=== PATIENT | female | born 1950 | race Caucasian/White ===

== ENCOUNTER → 2016-02-13 | Outpatient (CLI) | payer MEDICARE, OTHER ==
[~2016-02-13] MED LIST: ATIVAN; ATIVAN0.5 MG PO; DIFLUCAN150 MG PO; DUONEB 3 MG/3 ML3 M1 INH; ESTROGEN; GEODON; IMDUR SA30 MG PO; LEVOTHYROXINE0.05 M1 PO; LOPID; LOVASTATIN; LOVASTATIN20 MG PO; MIRTAZAPINE30 M2 PO; OXYBUTYNIN CHLO10 MG PO; OXYCODONE HCL5 MG PO; PRILOSEC; PRILOSEC20 M1 PO; REMERON; TESSALON PERLE200 MG PO; TRICOR145 MG PO; VITAMIN D50000 I3 PO; ZOFRAN ODT4 MG SL; Zofran4 MG PO
== END | disposition home or self-care (01) ==
LOC: RAD 02-12 10:04
DX: M54.6 Pain in thoracic spine (principal)

== ENCOUNTER 2017-01-08 21:28 | Inpatient (IN) | payer MEDICARE, OTHER ==
[2017-01-08] VITALS (9 sets, daily range): BP systolic 76–117; BP diastolic 39–78
[~2017-01-08] VITALS: Ht 170.2 cm; Wt 78.1 kg
[2017-01-08 21:50] LABS: BASO # 0.1 10*3/uL (0.0-0.1); BASO % 0.9 % (0.0-1.0); EOS # 0.2 10*3/uL (0.0-0.4); EOS % 3.3 % (1.0-4.0); HEMATOCRIT 26.4 % (37.0-47.0); HEMOGLOBIN 8.3 g/dl (12.0-16.0); LYMPH # 2.1 10*3/uL (1.3-4.4); LYMPH % 38.1 % (27.0-41.0); MEAN CELL VOLUME 92.3 fl (81.0-99.0); MEAN CORPUSCULAR HGB CONC 31.4 g/dl (33.0-37.0); MEAN PLATELET VOLUME 10.2 fl (9.6-12.3); MONO # 0.4 10*3/uL (0.1-1.0); MONO % 6.9 % (3.0-9.0); NEUT # 2.8 10*3/uL (2.3-7.9); NEUT % 50.4 % (47.0-73.0); PLATELET COUNT AUTOMATED 222 10*3/uL (130-400); RED BLOOD COUNT 2.86 10*6/uL (4.10-5.10); RED CELL DISTRI WIDTH 15.2 % (0-14.5); WHITE BLOOD COUNT 5.5 10*3/uL (4.8-10.8)
--- NOTE | 2017-01-08 22:00 | NUR ---
AT BEDSIDE. PATIENT UNABLE TO URINATE AT THIS TIME. WILL CONTINUE TO MONITOR. CALL LIGHT WITHIN REACH.
[2017-01-08 22:06] LABS: ALBUMIN 2.4 gm/dl (3.1-4.5); ALKALINE PHOSPHATASE 88 U/L (45-117); BUN 12 mg/dl (7-24); CHLORIDE 111 mmol/L (98-107); POTASSIUM 4.1 mmol/L (3.5-5.1); SGOT/AST 25 IU/L (3-35); SGPT/ALT 30 U/L (12-78); SODIUM 143 mmol/L (136-145); TOTAL PROTEIN 5.5 gm/dL (6.4-8.2)
[2017-01-08 22:07] LABS: TROPONIN I < 0.015 ng/ml (<0.045)
--- NOTE | 2017-01-08 23:00 | NUR ---
PATIENT ATTEMPTED TO URINATE ON BEDPAN AFTER ENCOURAGMENT. PATIENT REPORTS SHE IS UNABLE TO GO. PATIENT REFUSES STRAIGHT CATHERIZATION.
--- NOTE | 2017-01-08 23:35 | NUR ---
A 66, admitted to 5E, under the services of JAS Massey DO with a diagnosis of HYPOTENSION, PNEUMONIA, LACTIC ACIDOSIS. Chief complaint is WEAKNESS AND FLUSHING. Patient arrived via bed from ER. Monitor applied. Initial assessment completed. Vital signs taken and recorded. JAS MASSEY DO notified of admission to the unit. Orders received. See assessment for past medical history, medications and allergies. Patient and/or family oriented to unit. visitation policy reviewed. Clothing/patient valuable form completed. OWEN HILL
--- NOTE | 2017-01-09 00:14 | NUR ---
UNABLE TO VERIFY HOME MEDICATIONS WITH PATIENT. PATIENT SLEEPY AND LETHARGIC AT THIS TIME AND DOESN'T KNOW WHAT MEDICATIONS SHE TAKES. WILL PASS ON TO DAYLIGHT SHIFT TO CALL [facility] TO VERIFY MEDS. DR. CALDERON NOTIFIED OF PATIENT ADMISSION TO THE FLOOR.
[2017-01-09 04:29] LABS: BILIRUBIN NEGATIVE (NEGATIVE); BLOOD NEGATIVE (NEGATIVE); CLARITY CLEAR (CLEAR); COLOR YELLOW (YELLOW); GLUCOSE NEGATIVE (NEGATIVE); KETONE NEGATIVE (NEGATIVE); LEUKO ESTERASE TRACE (NEGATIVE); NITRITE NEGATIVE (NEGATIVE); PH 6.5 (5.0-9.0); SPECIFIC GRAVITY <= 1.005 (1.005-1.030); UROBILINOGEN 0.2 E.U./dl (0.2-1.0)
[2017-01-09 04:36] LABS: EPITHELIAL CELLS 0-5
[2017-01-09 04:38] LABS: URINE AMPHETAMINES < 1000 (1000ng/ml); URINE BARBITURATES < 200 (200ng/ml); URINE BENZODIAZEPINES < 200 (200ng/ml); URINE CANNABINOIDS (THC) < 50 (50ng/ml); URINE COCAINE < 300 (300ng/ml); URINE METHADONE < 300 (300ng/ml); URINE OPIATES > 300 (300ng/ml)
[2017-01-09 04:39] LABS: URINE PHENCYCLIDINE < 25 (25ng/ml)
--- NOTE | 2017-01-09 05:01 | NUR ---
PATIENT REFUSED TO HAVE LABS DRAWN THIS AM.
--- NOTE | 2017-01-09 05:59 | NUR ---
DR. DOOLEY NOTIFIED OF PATIENT REFUSAL TO LET LABS BE DRAWN THIS AM.
--- NOTE | 2017-01-09 07:05 | NUR ---
During bedside report pt states she is leaving this morning.
--- NOTE | 2017-01-09 07:35 | NUR ---
States that she feels fine and doesnt want to be here anymore so she is leaving. MBP this am was 110/70. Denies dizziness or shortness of breath. Pt states that she is aware she has pneumonia. I asked pt if she is planning on following up with her physican regarding this and she states she will. Pt requests IV's be taken out and ekg monitor off.
--- NOTE | 2017-01-09 07:43 | NUR ---
Notified Dr. Linares that pt is leaving AMA. Pt had already called this morning and he is here now, pt is getting dressed. Notified him that pt states she will follow up with her physican for antibiotics, states she is aware she has pneumonia.
--- NOTE | 2017-01-09 07:44 | NUR ---
Pt left via ambulatory in care of her with belongings.
--- NOTE | 2017-01-09 08:46 | NUR ---
PHYSICAL THERAPY Nursing screen received. Not appropriate for PT as patient left AMA. Thank you. Jazmin Kiran,PT
--- NOTE | 2017-01-09 14:49 | NUR ---
Occupational Therapy screen received however patient left AMA. [facility] OTR/l
== END 2017-01-09 07:44 | disposition left against medical advice (07) | DRG 682 ==
LOC: ED 21:28 → 5E 23:11
PROVIDERS: Student in an Organized Health Care Education/Training Program; ADMIT Emergency Medicine
DX: N17.0 Acute kidney failure with tubular necrosis (principal); E43 Unspecified severe protein-calorie malnutrition; G93.41 Metabolic encephalopathy; I95.9 Hypotension, unspecified; E87.2 Acidosis; E87.8 Other disorders of electrolyte and fluid balance, not elsewhere classified; Z99.81 Dependence on supplemental oxygen; E86.0 Dehydration; Z68.27 Body mass index [BMI] 27.0-27.9, adult; R55 Syncope and collapse; J43.9 Emphysema, unspecified; E03.9 Hypothyroidism, unspecified; E78.5 Hyperlipidemia, unspecified; F31.9 Bipolar disorder, unspecified; D64.9 Anemia, unspecified; G43.909 Migraine, unspecified, not intractable, without status migrainosus; N32.81 Overactive bladder; K21.9 Gastro-esophageal reflux disease without esophagitis; I10 Essential (primary) hypertension; G47.00 Insomnia, unspecified; E55.9 Vitamin D deficiency, unspecified; F17.210 Nicotine dependence, cigarettes, uncomplicated; J32.0 Chronic maxillary sinusitis; R73.9 Hyperglycemia, unspecified; F41.9 Anxiety disorder, unspecified; I70.90 Unspecified atherosclerosis; R25.2 Cramp and spasm; E66.3 Overweight; Z86.711 Personal history of pulmonary embolism; Z79.01 Long term (current) use of anticoagulants; Z86.73 Personal history of transient ischemic attack (TIA), and cerebral infarction without residual deficits; Z90.49 Acquired absence of other specified parts of digestive tract; Z90.710 Acquired absence of both cervix and uterus; Z88.5 Allergy status to narcotic agent; Z71.6 Tobacco abuse counseling; Z88.0 Allergy status to penicillin; Z88.2 Allergy status to sulfonamides; Z79.899 Other long term (current) drug therapy

== ENCOUNTER → 2017-11-05 | Outpatient (CLI) | payer MEDICARE, OTHER | END | disposition home or self-care (01) | LOC: CT 12:58 | DX: R05 Cough (principal); R06.02 Shortness of breath; R09.89 Other specified symptoms and signs involving the circulatory and respiratory systems; Z86.718 Personal history of other venous thrombosis and embolism ==

== ENCOUNTER 2019-05-11 21:52 | Emergency (ER) | payer MEDICARE, OTHER ==
[~2019-05-11] VITALS: Ht 170.1 cm; Wt 66.7 kg
[~2019-05-11 21:52] MED LIST changes: +AMBIEN10 M1 PO; +COREG12.5 M1 PO; +COZAAR25 M1 PO; +LEVOTHYROXINE50 MCG PO; +LOVASTATIN40 MG PO; +OMEPRAZOLE40 MG PO; +PERCOCET 10-321 EACH PO; +REMERON30 M1 PO; +ZANAFLEX4 M1 PO; +ZESTRIL10 MG PO; +ZIPRASIDONE HCL80 M1 PO
[2019-05-11 21:56] VITALS: BP 118/77
== END 2019-05-11 23:24 | disposition left against medical advice (07) ==
LOC: ED 21:52
DX: R07.89 Other chest pain (principal); F17.200 Nicotine dependence, unspecified, uncomplicated; Z88.0 Allergy status to penicillin; Z88.2 Allergy status to sulfonamides; Z88.6 Allergy status to analgesic agent; Z91.018 Allergy to other foods; Z79.899 Other long term (current) drug therapy

== ENCOUNTER 2019-08-10 14:50 | Emergency (ER) | payer MEDICARE, OTHER ==
[~2019-08-10] VITALS: Ht 170.1 cm; Wt 66.2 kg
[2019-08-10 14:56] VITALS: BP 108/58
[2019-08-10 15:52] LABS: BASO # 0.1 10*3/uL (0.0-0.1); BASO % 0.9 % (0.0-1.0); EOS # 0.3 10*3/uL (0.0-0.4); EOS % 5.9 % (1.0-4.0); LYMPH # 1.7 10*3/uL (1.3-4.4); LYMPH % 30.6 % (27.0-41.0); MEAN CELL VOLUME 90.7 fl (81.0-99.0); MEAN CORPUSCULAR HGB CONC 30.9 g/dl (33.0-37.0); MONO # 0.3 10*3/uL (0.1-1.0); MONO % 6.3 % (3.0-9.0); NEUT % 56.1 % (47.0-73.0); PLATELET COUNT AUTOMATED 281 10*3/uL (130-400); RED CELL DISTRI WIDTH 14.7 % (0-14.5); WHITE BLOOD COUNT 5.4 10*3/uL (4.8-10.8)
[2019-08-10 15:52] LABS: ABG BASE EXCESS -0.2 mmol/L (-2.0-2.0); ARTERIAL BLOOD GAS PH 7.357 (7.35-7.45)
[2019-08-10 16:09] LABS: ALBUMIN 2.9 gm/dl (3.1-4.5); CREATININE 1.31 mg/dL (0.55-1.02); POTASSIUM 4.1 mmol/L (3.5-5.1); TOTAL PROTEIN 7.3 gm/dL (6.4-8.2)
[2019-08-10 17:29] LABS: BILIRUBIN NEGATIVE (NEGATIVE); BLOOD NEGATIVE (NEGATIVE); CLARITY SL CLOUDY (CLEAR); COLOR YELLOW (YELLOW); GLUCOSE NEGATIVE (NEGATIVE); KETONE NEGATIVE (NEGATIVE); LEUKO ESTERASE 1+ (NEGATIVE); NITRITE NEGATIVE (NEGATIVE); SPECIFIC GRAVITY 1.005 (1.005-1.030); UROBILINOGEN 0.2 E.U./dl (0.2-1.0)
[2019-08-10 17:32] LABS: BACTERIA 1+; WBC 21-30 wbc/hpf (0-5)
[2019-08-10] MEDS ORDERED: PROVENTIL HFA6.7 GM INH (17:32)
[2019-08-10] MEDS ORDERED: PREDNISONE20 M1 PO (17:32)
== END 2019-08-10 17:38 | disposition home or self-care (01) ==
LOC: ED 14:50
PROVIDERS: Emergency Medicine
DX: J44.1 Chronic obstructive pulmonary disease with (acute) exacerbation (principal); F31.9 Bipolar disorder, unspecified; F41.9 Anxiety disorder, unspecified; I10 Essential (primary) hypertension; F17.200 Nicotine dependence, unspecified, uncomplicated; Z88.8 Allergy status to other drugs, medicaments and biological substances; Z88.2 Allergy status to sulfonamides; Z88.5 Allergy status to narcotic agent; Z88.0 Allergy status to penicillin

== ENCOUNTER → 2019-09-23 | Outpatient (CLI) | payer MEDICARE, OTHER ==
[~2019-09-23] MED LIST changes: +PREDNISONE20 M1 PO; +PROVENTIL HFA6.7 GM INH
== END | disposition home or self-care (01) ==
LOC: US 09-21 08:30
DX: R10.84 Generalized abdominal pain (principal); R10.2 Pelvic and perineal pain

== ENCOUNTER → 2019-12-07 | Outpatient (CLI) | payer MEDICARE, OTHER ==
--- NOTE | 2019-12-07 10:12 | NUR ---
PATIENT CAME IN TO THE HOSPITAL TO BE EVALUATED FOR HOME OXYGEN. ON ROOM AIR AT REST THE PATIENT'S VITALS WERE: HEART RATE 114, RESPIRATORY RATE:22, SPO2:92%, BLOOD PRESSURE:137/85. DURING AMBULATION THE PATIENT SHOW SIGNS AND COMPLAINED OF FATIGUE AND SHORTNESS OF BREATH. HER SPO2 read at 87% on room air. with 2l nasal cannula during ambulation the patient was able to maintain 92%, and hold with the 2l nasal cannula.
== END | disposition home or self-care (01) ==
LOC: CP 09:17
PROVIDERS: ATTEND Family Medicine
DX: R09.02 Hypoxemia (principal)

== ENCOUNTER → 2020-09-18 | Outpatient (CLI) | payer MEDICARE, OTHER ==
[2020-09-18 10:00] LABS: BASO # 0.1 10*3/uL (0.0-0.1); EOS # 0.3 10*3/uL (0.0-0.4); EOS % 4.6 % (1.0-4.0); HEMATOCRIT 32.9 % (37.0-47.0); LYMPH # 1.6 10*3/uL (1.3-4.4); LYMPH % 27.3 % (27.0-41.0); MEAN CELL VOLUME 90.6 fl (81.0-99.0); MEAN CORPUSCULAR HGB 28.1 pg (27.0-31.0); MEAN PLATELET VOLUME 9.8 fl (9.6-12.3); MONO # 0.3 10*3/uL (0.1-1.0); MONO % 5.8 % (3.0-9.0); NEUT # 3.6 10*3/uL (2.3-7.9); PLATELET COUNT AUTOMATED 301 10*3/uL (130-400); RED BLOOD COUNT 3.63 10*6/uL (4.10-5.10); RED CELL DISTRI WIDTH 14.8 % (0-14.5); RETICULOCYTE % 1.23 % (0.50-2.50); WHITE BLOOD COUNT 5.9 10*3/uL (4.8-10.8)
[2020-09-18 10:31] LABS: ALBUMIN 3.2 gm/dl (3.1-4.5); CREATININE 1.34 mg/dL (0.55-1.02); POTASSIUM 4.3 mmol/L (3.5-5.1)
[2020-09-18 10:41] LABS: THYROID STIM HORMONE (HS) 1.53 uIU/ml (0.358-4.75); THYROXINE (T4) TOTAL 10.6 ug/dl (4.8-13.9); TOTAL PROTEIN 7.7 gm/dL (6.4-8.2)
[2020-09-18 11:54] LABS: FERRITIN 9.6 ng/mL (10.0-291.0); VITAMIN D, 25-HYDROXY 15.2 ng/mL (30-100)
== END | disposition home or self-care (01) ==
LOC: LAB 09:27
PROVIDERS: ATTEND Family Medicine
DX: E78.5 Hyperlipidemia, unspecified (principal); R79.89 Other specified abnormal findings of blood chemistry; R53.83 Other fatigue; E55.9 Vitamin D deficiency, unspecified

== ENCOUNTER 2020-09-20 11:17 | Emergency (ER) | payer MEDICARE, OTHER ==
[~2020-09-20] VITALS: Ht 170.1 cm; Wt 61.2 kg
[2020-09-20 11:21] VITALS: BP 172/74
== END 2020-09-20 13:07 | disposition left against medical advice (07) ==
LOC: ED 11:17
DX: R20.0 Anesthesia of skin (principal); Z53.21 Procedure and treatment not carried out due to patient leaving prior to being seen by health care provider

== ENCOUNTER → 2023-03-27 | Outpatient (CLI) | payer OTHER ==
[2023-03-27 13:50] LABS: BASO # 0.1 10*3/uL (0.0-0.1); BASO % 1.6 % (0.0-1.0); EOS # 0.4 10*3/uL (0.0-0.4); EOS % 8.4 % (1.0-4.0); HEMATOCRIT 34.3 % (37.0-47.0); LYMPH # 1.8 10*3/uL (1.3-4.4); LYMPH % 35.8 % (27.0-41.0); MEAN CELL VOLUME 81.9 fl (81.0-99.0); MEAN CORPUSCULAR HGB 23.4 pg (27.0-31.0); MEAN CORPUSCULAR HGB CONC 28.6 g/dl (33.0-37.0); MEAN PLATELET VOLUME 9.5 fl (9.6-12.3); MONO # 0.4 10*3/uL (0.1-1.0); NEUT # 2.4 10*3/uL (2.3-7.9); PLATELET COUNT AUTOMATED 339 10*3/uL (130-400); RED BLOOD COUNT 4.19 10*6/uL (4.10-5.10); RED CELL DISTRI WIDTH 15.7 % (0-14.5); WHITE BLOOD COUNT 5.1 10*3/uL (4.8-10.8)
[2023-03-27 13:51] LABS: RETICULOCYTE % 1.15 % (0.50-2.50)
[2023-03-27 14:25] LABS: T3 UPTAKE 28.3 % (22.4-36.7); THYROXINE (T4) TOTAL 9.9 ug/dl (4.5-10.9)
[2023-03-27 14:34] LABS: VITAMIN D, 25-HYDROXY 65.5 ng/mL (30-100)
[2023-03-27 14:38] LABS: ALKALINE PHOSPHATASE 105 U/L (46-116); BUN 10 mg/dl (9-23); CHLORIDE 103 mmol/L (98-107); CHOLESTEROL 145 mg/dL (<200); LDL CHOLESTEROL 70 mg/dL (9-159); POTASSIUM 4.4 mmol/L (3.4-5.1); TOTAL PROTEIN 7.9 gm/dL (6.0-8.0); TRIGLYCERIDES 185 mg/dl (<150)
[2023-03-27 14:39] LABS: SGPT/ALT < 7 U/L (5-49)
[2023-03-27 18:02] LABS: BILIRUBIN Negative (Negative); BLOOD Negative (Negative); CLARITY Clear (Clear); COLOR Yellow (Yellow); GLUCOSE Negative (Negative); KETONE Negative (Negative); LEUKO ESTERASE 3+ (Negative); NITRITE Negative (Negative); UROBILINOGEN 0.2 E.U./dl (0.0-1.0)
[2023-03-27 18:10] LABS: BACTERIA 2+; WBC 51-100 wbc/hpf (0-5)
== END | disposition home or self-care (01) ==
LOC: LAB 12:56
PROVIDERS: Nurse Practitioner; ATTEND Family Medicine
DX: M16.11 Unilateral primary osteoarthritis, right hip (principal); Z51.81 Encounter for therapeutic drug level monitoring; E78.5 Hyperlipidemia, unspecified; R79.89 Other specified abnormal findings of blood chemistry; F31.9 Bipolar disorder, unspecified; R53.83 Other fatigue; R74.8 Abnormal levels of other serum enzymes; E55.9 Vitamin D deficiency, unspecified

== ENCOUNTER → 2023-04-06 | Outpatient (CLI) | payer OTHER | END | disposition home or self-care (01) | LOC: LAB 13:38 | PROVIDERS: ATTEND Psychiatry & Neurology Clinical Neurophysiology | DX: G58.9 Mononeuropathy, unspecified (principal); R42 Dizziness and giddiness ==

== ENCOUNTER → 2024-09-01 | Outpatient (CLI) | payer OTHER ==
[2024-09-01 10:30] LABS: MEAN CELL VOLUME 97.6 fl (81.0-99.0); MEAN CORPUSCULAR HGB 31.5 pg (27.0-31.0); MEAN PLATELET VOLUME 9.5 fl (9.6-12.3); NUCLEATED RED BLOOD CELL 0.0 % (0.0-0.0); NUCLEATED RED BLOOD CELL 0.0 10*3/uL (0.0-0.0); PLATELET COUNT AUTOMATED 258 10*3/uL (130-400); RED CELL DISTRI WIDTH 12.5 % (0-14.5); RETICULOCYTE % 1.53 % (0.50-2.50)
[2024-09-01 10:58] LABS: BUN 13.0 mg/dl (9-23); GAMMA GLUTAMYL TRANSFERASE 39.0 U/L (0-38); LDL CHOLESTEROL 66.0 mg/dL (9-159); SGPT/ALT 10.0 U/L (5-49); T3 UPTAKE 34.3 % (22.4-36.7); THYROXINE (T4) TOTAL 8.5 ug/dl (4.5-10.9)
[2024-09-01 11:03] LABS: PLATELET SUFFICIENCY NORMAL (NORMAL)
[2024-09-01 11:46] LABS: VITAMIN D, 25-HYDROXY 76.4 ng/mL (30-100)
[2024-09-02 12:07] LABS: ANTI-DSDNA ANTIBODIES <1 IU/mL (0-9)
[2024-09-02 17:07] LABS: A/G RATIO 0.9 (0.7-1.7); BETA GLOBULIN 1.0 g/dL (0.7-1.3); GLOBULIN, TOTAL 3.8 g/dL (2.2-3.9)
== END | disposition home or self-care (01) ==
LOC: LAB 09:45
PROVIDERS: ATTEND Family Medicine
DX: E55.9 Vitamin D deficiency, unspecified (principal); R79.89 Other specified abnormal findings of blood chemistry; E78.5 Hyperlipidemia, unspecified; R53.83 Other fatigue

== ENCOUNTER → 2024-09-02 | Outpatient (CLI) | payer OTHER ==
[2024-09-02 09:46] LABS: BILIRUBIN Negative (Negative); BLOOD Negative (Negative); CLARITY Cloudy (Clear); COLOR Yellow (Yellow); KETONE Negative (Negative); LEUKO ESTERASE 2+ (Negative); NITRITE Negative (Negative); PH 6.0 (4.5-8.0); SPECIFIC GRAVITY 1.010 (1.001-1.030); UROBILINOGEN 0.2 E.U./dl (0.0-1.0)
[2024-09-02 10:27] LABS: BACTERIA 3+; WBC 16-20 wbc/hpf (0-5)
== END ==
LOC: LAB 09:04
PROVIDERS: ATTEND Family Medicine
DX: E55.9 Vitamin D deficiency, unspecified (principal); R79.89 Other specified abnormal findings of blood chemistry

== ENCOUNTER → 2024-10-14 | Outpatient (CLI) | payer OTHER | END | disposition home or self-care (01) | LOC: CT 00:29 | PROVIDERS: ATTEND Internal Medicine Medical Oncology | DX: J84.10 Pulmonary fibrosis, unspecified (principal); I25.10 Atherosclerotic heart disease of native coronary artery without angina pectoris; D72.10 Eosinophilia, unspecified; N18.9 Chronic kidney disease, unspecified; R53.83 Other fatigue; R06.02 Shortness of breath; R10.9 Unspecified abdominal pain; R63.4 Abnormal weight loss; M51.369 Other intervertebral disc degeneration, lumbar region without mention of lumbar back pain or lower extremity pain; M47.816 Spondylosis without myelopathy or radiculopathy, lumbar region; M43.17 Spondylolisthesis, lumbosacral region; Z90.49 Acquired absence of other specified parts of digestive tract ==

== ENCOUNTER → 2024-12-05 | Outpatient (CLI) | payer OTHER | END | disposition home or self-care (01) | LOC: MRI 14:27 | PROVIDERS: ATTEND Nurse Practitioner Psychiatric/Mental Health | DX: S31.010A Laceration without foreign body of lower back and pelvis without penetration into retroperitoneum, initial encounter (principal); M51.16 Intervertebral disc disorders with radiculopathy, lumbar region; M47.26 Other spondylosis with radiculopathy, lumbar region; M48.07 Spinal stenosis, lumbosacral region; M43.17 Spondylolisthesis, lumbosacral region; M53.3 Sacrococcygeal disorders, not elsewhere classified; X58.XXXA Exposure to other specified factors, initial encounter; Y93.89 Activity, other specified; Y92.89 Other specified places as the place of occurrence of the external cause; Y99.8 Other external cause status ==

== ENCOUNTER → 2024-12-26 | Outpatient (CLI) | payer OTHER | END | disposition home or self-care (01) | LOC: WOUNDCARE 01:34 | PROVIDERS: ATTEND Nurse Practitioner Family | DX: L89.152 Pressure ulcer of sacral region, stage 2 (principal); D64.9 Anemia, unspecified; N18.9 Chronic kidney disease, unspecified; M53.3 Sacrococcygeal disorders, not elsewhere classified; G62.9 Polyneuropathy, unspecified; I10 Essential (primary) hypertension; K21.9 Gastro-esophageal reflux disease without esophagitis; E03.9 Hypothyroidism, unspecified; J43.9 Emphysema, unspecified; M19.90 Unspecified osteoarthritis, unspecified site; F31.9 Bipolar disorder, unspecified; F41.9 Anxiety disorder, unspecified; Z87.891 Personal history of nicotine dependence; Z90.49 Acquired absence of other specified parts of digestive tract; Z90.710 Acquired absence of both cervix and uterus ==

== ENCOUNTER → 2025-01-03 | Outpatient (CLI) | payer OTHER | END | disposition home or self-care (01) | LOC: WOUNDCARE 03:04 | PROVIDERS: ATTEND Nurse Practitioner Family | DX: L89.153 Pressure ulcer of sacral region, stage 3 (principal); M53.3 Sacrococcygeal disorders, not elsewhere classified; D64.9 Anemia, unspecified; I12.9 Hypertensive chronic kidney disease with stage 1 through stage 4 chronic kidney disease, or unspecified chronic kidney disease; N18.9 Chronic kidney disease, unspecified; G62.9 Polyneuropathy, unspecified; E03.9 Hypothyroidism, unspecified; J43.9 Emphysema, unspecified; K21.9 Gastro-esophageal reflux disease without esophagitis; M19.90 Unspecified osteoarthritis, unspecified site; F31.9 Bipolar disorder, unspecified; F41.9 Anxiety disorder, unspecified; Z87.891 Personal history of nicotine dependence; Z90.49 Acquired absence of other specified parts of digestive tract; Z90.710 Acquired absence of both cervix and uterus ==

== ENCOUNTER → 2025-01-12 | Outpatient (CLI) | payer OTHER ==
[2025-01-12 12:41] LABS: BASO # 0.1 10*3/uL (0.0-0.1); BASO % 1.1 % (0.0-1.0); EOS # 0.3 10*3/uL (0.0-0.4); EOS % 4.5 % (1.0-4.0); MEAN CELL VOLUME 99.3 fl (81.0-99.0); MEAN CORPUSCULAR HGB 32.6 pg (27.0-31.0); MEAN PLATELET VOLUME 10.1 fl (9.6-12.3); MONO # 0.4 10*3/uL (0.1-1.0); MONO % 6.0 % (3.0-9.0); NEUT # 3.9 10*3/uL (2.3-7.9); NEUT % 59.6 % (47.0-73.0); NUCLEATED RED BLOOD CELL 0.0 % (0.0-0.0); NUCLEATED RED BLOOD CELL 0.0 10*3/uL (0.0-0.0); PLATELET COUNT AUTOMATED 250 10*3/uL (130-400); RED CELL DISTRI WIDTH 12.4 % (0-14.5)
[2025-01-12 13:09] LABS: BUN 8.0 mg/dl (9-23)
[2025-01-12 13:24] LABS: VITAMIN D, 25-HYDROXY 62.8 ng/mL (30-100)
== END | disposition home or self-care (01) ==
LOC: LAB 12:03
PROVIDERS: ATTEND Internal Medicine Nephrology
DX: N25.81 Secondary hyperparathyroidism of renal origin (principal); E79.0 Hyperuricemia without signs of inflammatory arthritis and tophaceous disease; N17.9 Acute kidney failure, unspecified; D63.1 Anemia in chronic kidney disease